=== PATIENT | female | born 1995 | race Two or more races ===

== ENCOUNTER 2022-11-06 10:30 | Inpatient (IN) | payer MEDICAID, OTHER ==
[~2022-11-06] VITALS: Ht 160 cm; Wt 99.3 kg
[2022-11-06] MEDS: LACT. RINGERS/OXYTOCIN 20UNITS 1,000 ML IV SCH (00:25)
[2022-11-06] MEDS ORDERED: PREN-96 PO (11:34)
[2022-11-06] MEDS ORDERED: LIDOCAINE 2%HCL (LOCAL ANESTH.) INJ 20ML MDV IJ PRN (13:15)
[2022-11-06] MEDS ORDERED: PHISODERM TOP SOLN 240ML BTL TOP PRN (13:15)
[2022-11-06] MEDS ORDERED: WITCH HAZEL-GLYCERIN PAD TOP PRN (13:15)
[2022-11-06] MEDS ORDERED: LACT. RINGERS/OXYTOCIN 20UNITS 500 ML IV ONE ×2 (13:15→13:45)
[2022-11-06] MEDS ORDERED: BUTORPHANOL TARTRATE 2 MG/1 ML VIAL IV PRN ×2 (13:15)
[2022-11-06] MEDS ORDERED: DERMOPLAST 60ML BOTTLE TOP PRN (13:15)
[2022-11-06] MEDS ORDERED: PROMETHAZINE HCL 25 MG/ML 1ML IV PRN (13:15)
[2022-11-06] MEDS: LACTATED RINGER'S 1,000 ML IV SCH ×2 (13:36→19:22)
[2022-11-06 14:32] LABS: Albumin 2.9 g/dL (3.4-5.0); BUN/Creatinine Ratio 16.7 (10.0-20.0); Calcium 9.6 mg/dL (8.5-10.1)
[2022-11-06 14:35] LABS: Bilirubin, Total 0.2 mg/dL (0.2-1.0); Total Protein 7.2 g/dL (6.4-8.2)
[2022-11-06 14:43] LABS: Basophils # (auto) 0 10 ^3/uL (0-0.2); Basophils % (auto) 0.1 % (0.0-2.0); Eosinophils # (auto) 0 10 ^3/uL (0-0.8); Eosinophils % (auto) 0.4 % (0.0-7.0); Hematocrit 42.2 % (36.0-46.0); Hemoglobin 14.2 g/dL (12.2-16.2); Lymphocytes # (auto) 2.4 10 ^3/uL (0.4-5.4); Lymphocytes % (auto) 18.5 % (10.0-50.0); Mean Corpuscular Hemoglobin 31.9 pg (28.0-32.0); Mean Corpuscular Hgb Conc. 33.7 g/dL (32.0-36.0); Mean Corpuscular Volume 94.6 fL (80.0-100.0); Monocytes # (auto) 0.6 10 ^3/uL (0-1.3); Monocytes % (auto) 4.4 % (0.0-12.0); Neutrophils # (auto) 10.1 10 ^3/uL (1.6-8.6); Neutrophils % (auto) 76.6 % (37.0-80.0); Nucleated Red Blood Cells % 0.1 %; Red Blood Cells 4.47 10^6/uL (4.0-5.20); Red Cell Distribution Width 13.9 % (11.8-14.3); White Blood Cell 13.2 10^3/uL (4.4-10.8)
[2022-11-06 14:50] LABS: INR 0.93 (0.9-1.15); Partial Thromboplastin Time 28.7 SEC (24.5-34.5); Prothrombin Time 9.8 sec (9.3-11.8)
[2022-11-06] MEDS ORDERED: ePHEDrine SULFATE 50 MG/ML AMP IV ONE (15:30)
[2022-11-06] MEDS ORDERED: LACTATED RINGER'S 1,000 ML IV ONE (15:30)
[2022-11-06] MEDS ORDERED: fentaNYL CITRATE 100 MCG/2 ML VL IV ONE (15:30)
[2022-11-06] MEDS ORDERED: NALOXONE HCL 0.4 MG/ML VIAL IV ONE (15:30)
[2022-11-07] MEDS: LACTATED RINGER'S 1,000 ML IV SCH ×2 (04:08→13:15)
[2022-11-07] MEDS: ROPIVACAINE HCL 200 ML EPI SCH ×2 (06:26→10:32)
[2022-11-07] MEDS ORDERED: ROPIVACAINE HCL 200 ML ONE (10:15)
[2022-11-07] MEDS ORDERED: LIDOCAINE 2%HCL (LOCAL ANESTH.) INJ 20ML MDV ONE (10:24)
[2022-11-07] MEDS ORDERED: ONDANSETRON ODT 4 MG TAB PO PRN (10:30)
[2022-11-07] MEDS ORDERED: ACETAMINOPHEN 325 MG TAB PO PRN (10:30)
[2022-11-07] MEDS ORDERED: IBUPROFEN 600 MG TAB PO PRN (10:30)
[2022-11-07] MEDS: HYDROcodone-ACET 5/325MG TAB PO PRN (11:18)
[2022-11-07] MEDS: LACT. RINGERS/OXYTOCIN 20UNITS 1,000 ML IV SCH (13:15)
[2022-11-07 15:20] VITALS: BP 93/54; PULSE 86; RESP 17; TEMP 98.1; O2SAT 97
[2022-11-07 19:00] VITALS: BP 101/57; PULSE 85; RESP 16; TEMP 98
[2022-11-07] MEDS ORDERED: DOCUSATE SOD 100 MG CAP PO SCH (22:00)
[2022-11-07 23:00] VITALS: BP 93/61; PULSE 80; RESP 16; TEMP 97.6; O2SAT 97
[2022-11-08] MEDS: LACTATED RINGER'S 1,000 ML IV SCH (02:14)
[2022-11-08 02:55] VITALS: BP 97/56; PULSE 95; RESP 16; TEMP 97.9; O2SAT 97
[2022-11-08] MEDS: HYDROcodone-ACET 5/325MG TAB PO PRN (03:04)
[2022-11-08 06:55] VITALS: BP 100/60; PULSE 88; RESP 18; TEMP 98.1; O2SAT 98
[2022-11-08 07:06] LABS: RPR Non Reactive (Non Reactive)
[2022-11-08 11:00] VITALS: BP 111/59; PULSE 98; RESP 16; TEMP 98; O2SAT 99
[2022-11-08 13:00] VITALS: BP 108/60; PULSE 78; RESP 18; TEMP 98.3; O2SAT 97
[2022-11-09 19:06] LABS: Treponema pallidum Ab (FTA-Ab) Non Reactive (Non Reactive)
== END 2022-11-08 13:00 | disposition home or self-care (01) | DRG 560 ==
LOC: INTOOBSV 10:30 → LDRP 10:30 → OBSVTOIN 13:06 → LDRP 11-08 10:13
PROVIDERS: ADMIT Obstetrics & Gynecology; ATTEND Obstetrics & Gynecology
PROC: 10E0XZZ Delivery of Products of Conception, External Approach (ICD-10-PCS; principal; 2022-11-07)
PROC: 0KQM0ZZ Repair Perineum Muscle, Open Approach (ICD-10-PCS; 2022-11-07)
PROC: 3E0R3BZ Introduction of Anesthetic Agent into Spinal Canal, Percutaneous Approach (ICD-10-PCS; 2022-11-07)
PROC: 00HU33Z Insertion of Infusion Device into Spinal Canal, Percutaneous Approach (ICD-10-PCS; 2022-11-07)
DX: O70.1 Second degree perineal laceration during delivery (principal); Z37.0 Single live birth; Z3A.39 39 weeks gestation of pregnancy
CPT/HCPCS: 36415; 59025; 59409; 62282; 80053; 81002; 85025; 85610; 85730; 86592; 86850; 86900; 86901; 94760; 94762; 96360; 96361; 96366; G0378; J2590